=== PATIENT | female | born 1995 | race Caucasian/White ===

== ENCOUNTER → 2017-11-08 11:38 | Outpatient (CLI) | payer OTHER, SELFPAY ==
[2017-11-08 14:47] LABS: Follicle Stimulating Hormone 4.9 mIU/mL; Luteinizing Hormone 8.5 mIU/mL; Thyroid Stim Hormone (TSH) 5.06 uIU/mL (0.358-3.74)
== END ==
PROVIDERS: Family Provider Family Medicine; PCP Family Medicine; Visit Provider Nurse Practitioner Adult Health
DX: N91.2 Amenorrhea, unspecified (principal)
CPT/HCPCS: 36415; 83001; 83002; 84403; 84443

== ENCOUNTER → 2017-11-20 12:26 | Outpatient (CLI) | payer OTHER, SELFPAY ==
--- NOTE | 2017-11-20 12:29 | US_ITS ---
STUDY: ULTRASOUND TRANSVAGINAL CLINICAL: Female, 22 years old. Amenorrhea, pain, pressure TECHNIQUE: Transvaginal COMPARISON: None. FINDINGS: Normal uterine size measuring 8.0 cm in maximal craniocaudal dimension. There are no myometrial masses. Normal endometrial thickness measuring 6 mm. There are no endometrial masses, and there is no fluid in the endometrial cavity. Nabothian cyst. Normal right ovary, measuring 3.9 x 3.0 x 2.8 cm. There are multiple follicles without a dominant cyst. Normal left ovary, measuring 2.8 x 2.7 x 3.4 cm. There are multiple follicles without a dominant cyst. There is no free fluid in the pelvis. Urinary bladder unremarkable with a volume of 105 mL. Polycystic ovary disease: No. US/Pelvic (Non ) IMPRESSION: Uterus and ovaries unremarkable. Nabothian cyst. No free fluid. No evidence of polycystic ovarian syndrome. Electronically Signed: Pako Ro DO at 23:49 EDT , Service support ,
--- NOTE | 2017-11-20 12:30 | US_ITS ---
STUDY: ULTRASOUND TRANSVAGINAL CLINICAL: Female, 22 years old. Amenorrhea, pain, pressure TECHNIQUE: Transvaginal COMPARISON: None. FINDINGS: Normal uterine size measuring 8.0 cm in maximal craniocaudal dimension. There are no myometrial masses. Normal endometrial thickness measuring 6 mm. There are no endometrial masses, and there is no fluid in the endometrial cavity. Nabothian cyst. Normal right ovary, measuring 3.9 x 3.0 x 2.8 cm. There are multiple follicles without a dominant cyst. Normal left ovary, measuring 2.8 x 2.7 x 3.4 cm. There are multiple follicles without a dominant cyst. There is no free fluid in the pelvis. Urinary bladder unremarkable with a volume of 105 mL. Polycystic ovary disease: No. US/Transvaginal Non- IMPRESSION: Uterus and ovaries unremarkable. Nabothian cyst. No free fluid. No evidence of polycystic ovarian syndrome. Electronically Signed: Pako Ro DO at 23:49 EDT , Service support ,
== END ==
PROVIDERS: Family Provider Family Medicine; PCP Family Medicine; Visit Provider Nurse Practitioner Adult Health
DX: R10.2 Pelvic and perineal pain (principal)
CPT/HCPCS: 76830; 76856; 93976

== ENCOUNTER → 2018-02-12 11:26 | Outpatient (CLI) | payer OTHER, SELFPAY ==
[2018-02-12 14:33] LABS: Thyroid Stim Hormone (TSH) 2.13 uIU/mL (0.358-3.74)
== END ==
PROVIDERS: Nurse Practitioner Adult Health; Family Provider Family Medicine; PCP Family Medicine; Visit Provider Family Medicine
DX: E03.9 Hypothyroidism, unspecified (principal)
CPT/HCPCS: 36415; 84443

== ENCOUNTER → 2018-12-17 10:47 | Outpatient (CLI) | payer BC, SELFPAY ==
[2015-09-05 23:10] VITALS: BMI 46.0
== END ==
PROVIDERS: Family Provider Family Medicine; PCP Family Medicine; Referring Provider Family Medicine; Visit Provider Family Medicine
DX: E03.9 Hypothyroidism, unspecified (principal)
CPT/HCPCS: 36415; 84443

== ENCOUNTER → 2019-04-24 10:56 | Outpatient (CLI) | payer BC, SELFPAY ==
[2015-09-05 23:10] VITALS: BMI 46.0
[2019-04-24 12:57] LABS: Anion Gap 7 (5-15); BUN 10 mg/dL (7-18); BUN/Creat Ratio 13.2 RATIO (10-20); Calcium,Total 9.5 mg/dL (8.5-10.1); Chloride 106 mmol/L (98-107); Cholesterol 154 mg/dL (200); Creatinine, Serum 0.76 mg/dL (0.55-1.02); EST Glomerular Filtration Rate 100 mL/min (>60); Est Glom Filt Rate - Afr Amer 121 mL/min (>60); Free T3 3.1 pg/mL (2.18-3.98); Glucose 109 mg/dL (74-106); High Density Lipoprotein 31 mg/dL; Potassium 4.2 mmol/L (3.5-5.1); Sodium Level 140 mmol/L (136-145); T4 Total, Thyroxin 9.8 ug/dL (4.8-13.9); Thyroid Stim Hormone (TSH) 4.62 uIU/mL (0.358-3.74); Triglycerides 171 mg/dL; Very Low Density Lipoprotein 34 mg/dL (5-40)
== END ==
PROVIDERS: Family Provider Family Medicine; PCP Family Medicine; Referring Provider Family Medicine; Visit Provider Family Medicine
DX: Z00.00 Encounter for general adult medical examination without abnormal findings (principal); E03.9 Hypothyroidism, unspecified
CPT/HCPCS: 36415; 80048; 80061; 84436; 84443; 84481

== ENCOUNTER → 2019-06-26 11:18 | Outpatient (CLI) | payer BC, SELFPAY ==
[2015-09-05 23:10] VITALS: BMI 46.0
[2019-06-26 14:21] LABS: Anion Gap 6 (5-15); BUN 11 mg/dL (7-18); BUN/Creat Ratio 16.3 RATIO (10-20); Calcium,Total 9.2 mg/dL (8.5-10.1); Chloride 103 mmol/L (98-107); Creatinine, Serum 0.68 mg/dL (0.55-1.02); EST Glomerular Filtration Rate 114 mL/min (>60); Est Glom Filt Rate - Afr Amer 138 mL/min (>60); Free T3 3.4 pg/mL (2.18-3.98); Glucose 96 mg/dL (74-106); Potassium 4.1 mmol/L (3.5-5.1); Sodium Level 138 mmol/L (136-145); T4 Total, Thyroxin 10.2 ug/dL (4.8-13.9); Thyroid Stim Hormone (TSH) 2.86 uIU/mL (0.358-3.74)
== END ==
PROVIDERS: Family Provider Family Medicine; PCP Family Medicine; Visit Provider Family Medicine
DX: E03.9 Hypothyroidism, unspecified (principal); R73.01 Impaired fasting glucose
CPT/HCPCS: 36415; 80048; 84436; 84443; 84481

== ENCOUNTER → 2020-01-01 09:08 | Outpatient (CLI) | payer BC, SELFPAY ==
[2015-09-05 23:10] VITALS: BMI 46.0
[2020-01-01 10:54] LABS: Absolute Lymphocyte Count 2.67 X10^3/uL (0.83-4.51); Absolute Neutrophil Count 6.6 X10^3/uL (2.0-7.7); Basophil# 0.06 X10^3/uL; Basophil% 0.6 % (0-1); Eosinophil# 0.09 X10^3/uL; Eosinophils% 0.9 % (0-5); Hematocrit 43.7 % (37-47); Hemoglobin 14.2 g/dL (12.0-15.0); Lymphocyte # 2.67 X10^3/ul (4.0); Lymphocyte % 26.8 % (19-41); Mean Corp Hgb Conc 32.5 g/dL (32-36); Mean Corpuscular Hgb 29.5 pg (27.0-32.0); Mean Corpuscular Volume 90.7 fL (81-99); Mean Platelet Vol. 8.9 fl (6.2-12.0); Monocyte# 0.53 X10^3/uL; Monocyte% 5.3 % (0-10); NRBC Flagged by Analyzer 0 % (0-5); Neutrophil # 6.56 X10^3/uL (2.7-7.7); Neutrophil % 65.9 % (47-70); Platelet Count 334 K/mm3 (150-450); RBC Distribution Width CV 13.1 % (11.6-14.6); RBC Distribution Width SD 42.8 fl (35.1-43.9); Red Blood Count 4.82 M/mm3 (4.2-5.4)
[2020-01-01 11:24] LABS: Anion Gap 4 (5-15); BUN 12 mg/dL (7-18); BUN/Creat Ratio 17.9 RATIO (10-20); Calcium,Total 9.5 mg/dL (8.5-10.1); Chloride 105 mmol/L (98-107); Creatinine, Serum 0.67 mg/dL (0.55-1.02); EST Glomerular Filtration Rate 114 mL/min (>60); Est Glom Filt Rate - Afr Amer 138 mL/min (>60); Free T3 3.2 pg/mL (2.18-3.98); Glucose 107 mg/dL (74-106); Potassium 3.9 mmol/L (3.5-5.1); Sodium Level 138 mmol/L (136-145); T4 Total, Thyroxin 8.7 ug/dL (4.8-13.9); Thyroid Stim Hormone (TSH) 3.37 uIU/mL (0.358-3.74)
== END ==
PROVIDERS: PCP Family Medicine; Visit Provider Family Medicine
DX: E03.9 Hypothyroidism, unspecified (principal); E66.01 Morbid (severe) obesity due to excess calories
CPT/HCPCS: 36415; 80048; 84436; 84443; 84481; 85025

== ENCOUNTER → 2020-07-20 10:35 | Outpatient (CLI) | payer BC, SELFPAY ==
[2015-09-05 23:10] VITALS: BMI 46.0
[2020-07-20 12:47] LABS: Anion Gap 5 (5-15); BUN 10 mg/dL (7-18); BUN/Creat Ratio 13.1 RATIO (10-20); Calcium,Total 9.4 mg/dL (8.5-10.1); Chloride 106 mmol/L (98-107); Cholesterol 154 mg/dL (200); Creatinine, Serum 0.76 mg/dL (0.55-1.02); EST Glomerular Filtration Rate 98 mL/min (>60); Est Glom Filt Rate - Afr Amer 119 mL/min (>60); Free T3 3.1 pg/mL (2.18-3.98); Glucose 97 mg/dL (74-106); High Density Lipoprotein 32 mg/dL; Potassium 3.9 mmol/L (3.5-5.1); Sodium Level 139 mmol/L (136-145); T4 Total, Thyroxin 10.7 ug/dL (4.8-13.9); Thyroid Stim Hormone (TSH) 1.89 uIU/mL (0.358-3.74); Triglycerides 168 mg/dL; Very Low Density Lipoprotein 34 mg/dL (5-40)
== END ==
PROVIDERS: PCP Family Medicine; Referring Provider Family Medicine; Visit Provider Family Medicine
DX: E03.9 Hypothyroidism, unspecified (principal); E66.01 Morbid (severe) obesity due to excess calories
CPT/HCPCS: 36415; 80048; 80061; 84436; 84443; 84481

== ENCOUNTER → 2020-10-12 11:29 | Outpatient (CLI) | payer BC, SELFPAY ==
[2015-09-05 23:10] VITALS: BMI 46.0
[2020-10-12 15:51] LABS: Thyroid Stim Hormone (TSH) 3.34 uIU/mL (0.358-3.74)
== END ==
PROVIDERS: PCP Family Medicine; Visit Provider Registered Nurse
DX: E03.9 Hypothyroidism, unspecified (principal)
CPT/HCPCS: 36415; 84443

== ENCOUNTER 2021-09-27 11:40 | Outpatient (CLI) | payer BC, SELFPAY ==
[2021-09-27 16:02] LABS: ALB/GLOB Ratio 0.7 RATIO (0.9-2.4); AST(SGOT) 40 U/L (15-37); Alanine Aminotransfer ALT/SGPT 72 U/L (13-56); Albumin, Serum 3.4 g/dL (3.2-5.0); Alkaline Phosphatase 105 U/L (45-117); Anion Gap 4 (5-15); BUN 9 mg/dL (7-18); BUN/Creat Ratio 13.1 RATIO (10-20); Chloride 105 mmol/L (98-107); Cholesterol 169 mg/dL (200); Creatinine, Serum 0.69 mg/dL (0.55-1.02); EST Glomerular Filtration Rate 110 mL/min (>60); Est Glom Filt Rate - Afr Amer 133 mL/min (>60); Globulin 5.1 g/dL (2.2-4.2); Glucose 94 mg/dL (74-106); High Density Lipoprotein 29 mg/dL; Potassium 4.2 mmol/L (3.5-5.1); Protein, Total 8.5 g/dL (6.4-8.2); Sodium Level 137 mmol/L (136-145); Thyroid Stim Hormone (TSH) 2.47 uIU/mL (0.358-3.74); Triglycerides 236 mg/dL; Very Low Density Lipoprotein 47 mg/dL (5-40)
== END 2021-09-27 23:59 | disposition short-term general hospital (02) ==
LOC: MFPLAB 11:42
PROVIDERS: PCP Family Medicine; Referring Provider Family Medicine; Visit Provider Registered Nurse
DX: E03.9 Hypothyroidism, unspecified (principal); E66.01 Morbid (severe) obesity due to excess calories
CPT/HCPCS: 36415; 80053; 80061; 84443

== ENCOUNTER → 2022-10-02 | Outpatient (CLI) | payer BC, SELFPAY ==
[2022-10-02 11:13] LABS: Anion Gap 6 (5-15); BUN 10 mg/dL (7-18); BUN/Creat Ratio 15.6 RATIO (10-20); Calcium,Total 8.9 mg/dL (8.5-10.1); Chloride 104 mmol/L (98-107); Cholesterol 155 mg/dL (200); Creatinine, Serum 0.64 mg/dL (0.55-1.02); EST Glomerular Filtration Rate 118 mL/min (>60); Est Glom Filt Rate - Afr Amer 143 mL/min (>60); Glucose 116 mg/dL (74-106); High Density Lipoprotein 30 mg/dL; Sodium Level 138 mmol/L (136-145); T4 Free Direct 1.21 ng/dL (0.76-1.46); Thyroid Stim Hormone (TSH) 3.23 uIU/mL (0.358-3.74); Triglycerides 193 mg/dL; Very Low Density Lipoprotein 39 mg/dL (5-40)
== END | disposition home or self-care (01) ==
LOC: MFPLAB 09:27
PROVIDERS: PCP Family Medicine; Referring Provider Family Medicine; Visit Provider Family Medicine
DX: Z00.00 Encounter for general adult medical examination without abnormal findings (principal); E03.9 Hypothyroidism, unspecified
CPT/HCPCS: 36415; 80048; 80061; 82306; 84439; 84443; 84481

== ENCOUNTER → 2023-10-10 | Outpatient (CLI) | payer OTHER, SELFPAY ==
[2023-10-10 12:55] LABS: Anion Gap 8 (5-15); BUN 12 mg/dL (7-18); BUN/Creat Ratio 18.3 RATIO (10-20); Calcium,Total 9.2 mg/dL (8.5-10.1); Chloride 106 mmol/L (98-107); Cholesterol 192 mg/dL (200); Creatinine, Serum 0.65 mg/dL (0.55-1.02); EST Glomerular Filtration Rate 115 mL/min (>60); Est Glom Filt Rate - Afr Amer 139 mL/min (>60); Free T3 3.4 pg/mL (2.18-3.98); Glucose 116 mg/dL (74-106); High Density Lipoprotein 33 mg/dL; Potassium 4.1 mmol/L (3.5-5.1); Sodium Level 141 mmol/L (136-145); T4 Free Direct 1.11 ng/dL (0.76-1.46); Thyroid Stim Hormone (TSH) 2.01 uIU/mL (0.358-3.74); Triglycerides 199 mg/dL; Very Low Density Lipoprotein 40 mg/dL (5-40)
== END | disposition home or self-care (01) ==
LOC: MFPLAB 09:19
PROVIDERS: PCP Family Medicine; Visit Provider Family Medicine
DX: Z00.00 Encounter for general adult medical examination without abnormal findings (principal); E03.9 Hypothyroidism, unspecified
CPT/HCPCS: 36415; 80048; 80061; 84439; 84443; 84481

== ENCOUNTER → 2024-10-06 | Outpatient (CLI) | payer BC, SELFPAY ==
[2024-10-06 12:48] LABS: Anion Gap 6 (5-15); BUN 10 mg/dL (7-18); BUN/Creat Ratio 16.1 RATIO (10-20); Calcium,Total 9.1 mg/dL (8.5-10.1); Chloride 104 mmol/L (98-107); Cholesterol 178 mg/dL (200); Creatinine, Serum 0.62 mg/dL (0.55-1.02); EST Glomerular Filtration Rate 121 mL/min (>60); Est Glom Filt Rate - Afr Amer 146 mL/min (>60); Glucose 116 mg/dL (74-106); High Density Lipoprotein 31 mg/dL; Sodium Level 138 mmol/L (136-145); T4 Free Direct 1.17 ng/dL (0.76-1.46); Triglycerides 282 mg/dL; Very Low Density Lipoprotein 56 mg/dL (5-40)
== END | disposition home or self-care (01) ==
PROVIDERS: PCP Family Medicine; Referring Provider Family Medicine; Visit Provider Family Medicine
DX: E03.9 Hypothyroidism, unspecified (principal); I10 Essential (primary) hypertension
CPT/HCPCS: 36415; 80048; 80061; 84439; 84443; 84481

== ENCOUNTER → 2025-01-05 | Outpatient (CLI) | payer BC, SELFPAY ==
[2025-01-05 13:00] LABS: Anion Gap 10 (5-15); BUN 9 mg/dL (4-19); BUN/Creat Ratio 15.2 RATIO (10-20); Calcium,Total 9.5 mg/dL (7.6-11.0); Chloride 102 mmol/L (98-108); Creatinine, Serum 0.61 mg/dL (0.70-1.20); EST Glomerular Filtration Rate 124 (>60); Free T3 3.3 pg/mL (2.18-3.98); Glucose 120 mg/dL (70-99); Sodium Level 138 mmol/L (133-145)
== END | disposition home or self-care (01) ==
LOC: MFPLAB 09:39
PROVIDERS: PCP Family Medicine; Referring Provider Family Medicine; Visit Provider Family Medicine
DX: E03.9 Hypothyroidism, unspecified (principal); I10 Essential (primary) hypertension
CPT/HCPCS: 36415; 80048; 84439; 84443; 84481